=== PATIENT | male | born 1945 | race Caucasian/White ===

== ENCOUNTER → 2018-10-13 | Outpatient (CLI) | payer MEDICARE | END | disposition home or self-care (01) | LOC: PCVCCLINIC 13:12 | PROVIDERS: ATTEND Internal Medicine Cardiovascular Disease | DX: I25.10 Atherosclerotic heart disease of native coronary artery without angina pectoris (principal); E78.5 Hyperlipidemia, unspecified; I65.23 Occlusion and stenosis of bilateral carotid arteries; J44.9 Chronic obstructive pulmonary disease, unspecified; Z79.82 Long term (current) use of aspirin; Z87.891 Personal history of nicotine dependence | CPT/HCPCS: 36415; 80061; 93005; G0463 ==

== ENCOUNTER → 2018-10-21 | Outpatient (CLI) | payer MEDICARE ==
--- NOTE | 2018-10-22 08:55 | PCVCIMAG ---
EXAM: BILATERAL CAROTID DUPLEX INDICATION: Carotid Occlusive Disease. FINDINGS: Doppler Measurements (centimeters per second): RIGHT: Peak CCA-53, Peak ECA-169, Diastolic ICA-22, Peak ICA-98, ICA/CCA Ratio-1.9. LEFT: Peak CCA-69, Peak ECA-122, Diastolic ICA-25, Peak ICA-107, ICA/CCA Ratio-1.5. RIGHT CAROTID: The carotid bulb has moderate plaque. The proximal internal carotid artery shows <40% stenosis. The common carotid artery shows no significant stenosis. The external carotid artery shows 60% stenosis. LEFT CAROTID: The carotid bulb has moderate plaque. The proximal internal carotid artery shows <40% stenosis. The common carotid artery shows no significant stenosis. The external carotid artery shows no significant stenosis. Antegrade flow in both vertebral arteries. IMPRESSION: <40% stenosis of the right internal carotid artery with moderate plaque. <40% stenosis of the left internal carotid artery with moderate plaque. LOC:OFFICE
--- NOTE | 2018-10-25 11:31 | PCVCIMAG ---
APPROVED REPORT Study performed: 10/21/2018 14:50:17 EXAM: Comprehensive 2D, Doppler, and color-flow Echocardiogram Patient Location: Echo lab Status: routine BSA: 1.78 HR: 92 bpmBP: 128/70 mmHg Rhythm: NSR w/ frequent PACs and PVCs Other Information Study Quality: Adequate Indications Dyspnea Palpitations Fatigue 2D Dimensions IVSd: 10.17 (7-11mm) LVDd: 46.73 mm PWd: 10.23 (7-11mm)Ascending Ao: 33.13 (22-36mm) LVDs: 36.27 (25-40mm) Left Atrium: 39.85 (27-40mm) Aortic Root: 31.54 mm Volumes Left Atrial Volume (Systole) Single Plane 4CH: 56.49 mLSingle Plane 2CH: 83.48 mL LA ESV Index: 40.00 mL/m2 Aortic Valve AoV Peak Gabriel.: 0.96 m/s AO Peak Gr.: 3.97 mmHgLVOT Max P.58 mmHg LVOT Max V: 0.60 m/s Mitral Valve E/A Ratio: 0.8 MV Decel. Time: 260.81 ms MV E Max Gabriel.: 0.66 m/s MV A Gabriel.: 0.81 m/s IVRT: 152.25 ms Pulmonary Valve PV Peak Gabriel.: 0.73 m/sPV Peak Gr.: 2.18 mmHg Pulmonary Vein P Vein S: 0.25 m/sP Vein A: 0.51 m/s P Vein D: 0.42 m/sP Vein A Dur.: 193.8 msec P Vein S/D Ratio: 0.60 Tricuspid Valve TR Peak Gabriel.: 2.35 m/s TR Peak Gr.: 22.19 mmHg Left Ventricle The left ventricle is normal size. Basal-mid inferior akinesis. There is normal left ventricular wall thickness. Left ventricular systolic function is mildly decreased. LVEF is 45-50%. Grade I - abnormal relaxation pattern. Right Ventricle The right ventricle is normal size. The right ventricular systolic function is normal. Atria Left atrium is mildly dilated. The right atrium size is normal. Aortic Valve The aortic valve is normal in structure. Mild aortic regurgitation. There is no aortic valvular stenosis. Mitral Valve The mitral valve is normal in structure. Mild mitral regurgitation. No evidence of mitral valve stenosis. Tricuspid Valve The tricuspid valve is normal in structure. Mild tricuspid regurgitation with PAP of 29 mmHg. Pulmonic Valve The pulmonary valve is normal in structure. Mild pulmonic regurgitation. Great Vessels The aortic root is normal in size. IVC is normal in size and collapses >50% with inspiration. Pericardium There is no pericardial effusion. There is no pleural effusion. <Conclusion> The left ventricle is normal size. Basal-mid inferior akinesis. LVEF is 45-50%. Grade I - abnormal relaxation pattern. The right ventricle is normal size. Left atrium is mildly dilated. Mild aortic regurgitation. Mild mitral regurgitation. Mild tricuspid regurgitation with PAP of 29 mmHg. The aortic root is normal in size. There is no pericardial effusion.
== END | disposition home or self-care (01) ==
LOC: PCVCIMAG 14:00
PROVIDERS: ATTEND Internal Medicine Cardiovascular Disease
DX: I65.23 Occlusion and stenosis of bilateral carotid arteries (principal); I08.3 Combined rheumatic disorders of mitral, aortic and tricuspid valves; R09.89 Other specified symptoms and signs involving the circulatory and respiratory systems; E78.00 Pure hypercholesterolemia, unspecified; Z72.0 Tobacco use
CPT/HCPCS: 93306; 93880

== ENCOUNTER → 2018-10-31 | Outpatient (CLI) | payer MEDICARE ==
[~2018-10-31] MED LIST: REGADENOSON 0.4 MG/5 ML DISP.SYRIN. IV ONE
--- NOTE | 2018-10-31 17:17 | PCVCIMAG ---
APPROVED REPORT Imaging Protocol: Rest Tc-99m/Stress Tc-99m 1 day Study performed: 10/31/2018 11:13:41 Indication: CAD, Abnormal Stress Echo - Switched to Nuclear Patient Location: Out-Patient Stress Nurse: Rachel Sanford RN [place] Tech:Nani Bendercortez [facility] Ht: 5 ft 9 in Wt: 145 lbs BSA: 1.80 m2 HR: 60 bpm BP: 181/83 mmHg BMI: 21.4 Rhythm: Sinus Rhythm with T wave abnormalities Medical History Medical History: Hyperlipidemia, COPD, CVD, CAD, Former Smoker Medications: ASA, Crestor Allergies: PCN, Amoxicillin Cardiac Risk Factors: Age Pretest Chest Pain Characteristics: No chest pain Exercise History: Physically active Resting Data Rest SPECT myocardial perfusion imaging was performed in supine position 45 minutes following the intravenous injection of 9.6 mCi of Tc-99m Sestamibi. Time of rest injection: 1020 Date: 10/31/2018 Administration Route: IV Administration Site: Right AC Pharmacologic Stress Pharmacologic stress test was performed by injecting Regadenoson 0.4 mg IV push over 10-15 seconds immediately followed by the intravenous injection of 32.1 mCi of Tc-99m Sestamibi. Time of stress injection: 1145 Date: 10/31/2018 Administration Route: IV Administration Site: Right AC Gated Stress SPECT was performed 45 minutes after stress injection. The images were gated to evaluate regional wall motion and calculate left ventricular ejection fraction. Stress Test Details Stress Test: Pharmacologic stress testing performed using 0.4 mg of regadenoson per 5 mL given IV over 10 seconds. Reason for pharmacologic stress test: physical limitation. HRMax Heart Rate (APMHR): 148 bpm Resting HR: 60 bpmTarget HR (85% APMHR): 125 bpm Max HR Achieved: 74 bpm % of APMHR: 50 Recovery HR: 82 bpm BP Resting BP: 181/83 mmHg Max BP: 141/80 mmHg Recovery BP: 149/68 mmHg ECG Resting ECG: Sinus Rhythm with T wave abnormalities Stress ECG: Sinus Rhythm with T wave abnormalities Recovery ECG: Sinus Rhythm with T wave abnormalities Clinical Reason for Termination: Completed protocol Stress Symptoms: Dyspnea Exercise duration: 0 min 55 sec Symptoms resolved with caffeine. Stress ECG Conclusion ECG: Non-ischemic Study Quality Study: Good Study Data Post stress, the left ventricular ejection was 39%.. SSS: 9 SRS: 7 SDS: 3 TID = 1.06. Perfusion No evidence of stress induced ischemia. 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 Wall Motion Mild/moderately decreased left ventricular systolic function. Nuclear Conclusion No evidence of stress induced ischemia. 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 Post stress, the left ventricular ejection was 39%. No prior study available for comparison. Interpreted by: Lake Collins MD Electronically Approved: 10/31/2018 14:24:41 <Conclusion> ECG: Non-ischemic
== END | disposition home or self-care (01) ==
LOC: PCVCIMAG 10-27 15:15
PROVIDERS: ATTEND Internal Medicine Cardiovascular Disease
DX: I25.10 Atherosclerotic heart disease of native coronary artery without angina pectoris (principal); R94.31 Abnormal electrocardiogram [ECG] [EKG]
CPT/HCPCS: 78452; 93017; A9500; J2785

== ENCOUNTER → 2018-12-13 | Outpatient (CLI) | payer MEDICARE | END | disposition home or self-care (01) | LOC: PCVCCLINIC 11:30 | PROVIDERS: ATTEND Internal Medicine Cardiovascular Disease | DX: I25.10 Atherosclerotic heart disease of native coronary artery without angina pectoris (principal); E78.00 Pure hypercholesterolemia, unspecified; I25.5 Ischemic cardiomyopathy; J44.9 Chronic obstructive pulmonary disease, unspecified; I65.23 Occlusion and stenosis of bilateral carotid arteries; I25.2 Old myocardial infarction; Z87.891 Personal history of nicotine dependence; Z72.89 Other problems related to lifestyle; Z79.82 Long term (current) use of aspirin; Z88.0 Allergy status to penicillin; Z88.1 Allergy status to other antibiotic agents | CPT/HCPCS: 36415; 80061; 93005; G0463 ==

== ENCOUNTER → 2019-06-19 | Outpatient (CLI) | payer MEDICARE | END | disposition home or self-care (01) | LOC: PCVCCLINIC 16:33 | PROVIDERS: ATTEND Internal Medicine Cardiovascular Disease | DX: I25.10 Atherosclerotic heart disease of native coronary artery without angina pectoris (principal); I25.5 Ischemic cardiomyopathy; E78.00 Pure hypercholesterolemia, unspecified; J44.9 Chronic obstructive pulmonary disease, unspecified; I65.23 Occlusion and stenosis of bilateral carotid arteries; Z88.0 Allergy status to penicillin; Z88.1 Allergy status to other antibiotic agents; Z79.82 Long term (current) use of aspirin; Z79.899 Other long term (current) drug therapy; Z87.891 Personal history of nicotine dependence | CPT/HCPCS: 36415; 80061; 93005; G0463 ==